=== PATIENT | female | born 1970 | race Caucasian/White ===

== ENCOUNTER 2017-07-06 22:24 | Emergency (ER) | payer OTHER ==
[~2017-07-06] VITALS: Ht 157.5 cm; Wt 69.0 kg
[2017-07-06 23:21] LABS: HEMATOCRIT 33.1 % (34.6-47.8); HEMOGLOBIN 10.2 g/dL (11.7-16.4); WHITE BLOOD COUNT 9.6 x10^3/uL (3.4-10)
[2017-07-06] MEDS ORDERED: SODIUM CHLORIDE 0.9% 1,000ML IVBOLUS ONE (23:30)
[2017-07-06] MEDS ORDERED: SODIUM CHLORIDE FLUSH 10ML SYR IVF ONE (23:30)
[2017-07-06 23:33] LABS: ASPARTATE AMINO TRANSFERASE 11 U/L (15-37); BLOOD UREA NITROGEN 12 mg/dL (7-18)
[2017-07-07] MEDS ORDERED: OMNIPAQUE 350 MG/ML, 100ML BOTTLE ONE (00:35)
[2017-07-07] MEDS ORDERED: ONDANSETRON 2MG/ML, 2ML IVPush ONE (01:00)
[2017-07-07] MEDS ORDERED: morphine SULFATE 10 MG/ML, 1ML IVPush PRN (01:00)
[2017-07-07] MEDS ORDERED: morphine SULFATE 10 MG/ML, 1ML ONE (01:26)
[2017-07-07] MEDS ORDERED: ONDANSETRON 2MG/ML, 2ML ONE (01:27)
[2017-07-07 01:57] VITALS: BP 133/78
== END 2017-07-07 02:00 | disposition home or self-care (01) ==
LOC: ED 07-07 01:12
DX: K52.9 Noninfective gastroenteritis and colitis, unspecified (principal)
CPT/HCPCS: 36415; 74177; 80053; 83690; 84703; 85025; 96361; 96374; 96375; 99285; J2270; J2405; J7030; Q9967

== ENCOUNTER 2017-08-30 17:24 | Emergency (ER) | payer OTHER ==
[~2017-08-30] VITALS: Ht 157.5 cm; Wt 70.7 kg
[2017-08-30 17:58] VITALS: BP 168/106
[2017-08-30] MEDS ORDERED: SODIUM CHLORIDE FLUSH 10ML SYR IVF ONE (18:30)
[2017-08-30] MEDS ORDERED: ONDANSETRON 2MG/ML, 2ML IVPush ONE (18:30)
[2017-08-30] MEDS ORDERED: MORPHINE SULFATE 4 MG/ML, 1ML ONE ×2 (18:39→19:24)
[2017-08-30] MEDS ORDERED: ONDANSETRON 2MG/ML, 2ML ONE (18:40)
[2017-08-30] MEDS: MORPHINE SULFATE 4 MG/ML, 1ML IVPush PRN ×2 (18:41→19:28)
[2017-08-30] MEDS ORDERED: LIDOCAINE 1%, 10ML ONE (18:46)
[2017-08-30] MEDS ORDERED: PROPOFOL 10 MG/ML, 20ML ONE (18:59)
[2017-08-30] MEDS ORDERED: LIDOCAINE 1%, 20ML INFIL ONE (19:00)
[2017-08-30] MEDS ORDERED: PROPOFOL 10 MG/ML, 20ML IVPush ONE ×2 (19:00→19:30)
== END 2017-08-30 20:42 | disposition home or self-care (01) ==
LOC: ED 20:01
DX: S52.571A Other intraarticular fracture of lower end of right radius, initial encounter for closed fracture (principal); V00.211A Fall from ice-skates, initial encounter; Y93.21 Activity, ice skating; Y92.330 Ice skating rink (indoor) (outdoor) as the place of occurrence of the external cause; Y99.8 Other external cause status
CPT/HCPCS: 25605; 73100; 73110; 96374; 96375; 99152; 99153; 99285; J2405; J2704